=== PATIENT | male | born 1975 | race Caucasian/White ===

== ENCOUNTER 2018-09-18 18:52 | Emergency (ER) | payer OTHER ==
[~2018-09-18] VITALS: Ht 172.7 cm; Wt 101.0 kg
[~2018-09-18 18:52] MED LIST: PANT-47 PO; POTA10TA21 PO; SULF1TAB49 PO
[2018-09-18] MEDS ORDERED: CYCL-1 PO (20:40)
[2018-09-18] MEDS ORDERED: naproxen 500mg tablet PO ONE (20:40)
[2018-09-18] MEDS ORDERED: cyclobenzaprine 10mg tablet PO ONE ×2 (20:40→20:55)
[2018-09-18 21:24] VITALS: BP 130/69
== END 2018-09-18 21:25 | disposition home or self-care (01) ==
LOC: ER 18:52
DX: S29.011A Strain of muscle and tendon of front wall of thorax, initial encounter (principal); I10 Essential (primary) hypertension; Z90.49 Acquired absence of other specified parts of digestive tract; Y04.8XXA Assault by other bodily force, initial encounter; Y93.89 Activity, other specified; Y92.89 Other specified places as the place of occurrence of the external cause; Y99.8 Other external cause status
CPT/HCPCS: 71046; 99284